=== PATIENT | male | born 1970 | race Caucasian/White ===

== ENCOUNTER 2019-05-06 01:05 | Emergency (ER) | payer OTHER, SELFPAY ==
--- NOTE | 2019-05-06 01:06 | ED.BACK ---
HPI - Back Pain/Injury General Chief Complaint: Back Pain/Injury Stated Complaint: back issues Time Seen by Provider: 05/06/19 01:06 Source: patient Mode of arrival: Ambulatory Limitations: no limitations History of Present Illness HPI Narrative: 49-year-old male nonsmoker with history of prior back trouble with surgery presents with a chief complaint of a few weeks of gradually worsening left lower back pain with radiation down his left leg, but things have significantly worsened over the past few days. He now has very severe pain radiating down his left leg with any motion and has difficulty sitting. He denies any trauma. He has had no fever chills and denies the use of IV drugs. He takes no blood thinners. He denies bowel or bladder trouble, lower extremity weakness, or numbness in his groin. Denies foot drop. Is able to find a position of comfort while standing and leaning over with his left leg slightly extended. He was seen and treated locally with a micro diskectomy about 2 years ago. He has been in touch with Dr. Gtz's office regarding this occurence Complaint: back pain Onset (ago): day(s) Duration: constant Similar Symptoms Previously: Yes Location: lumbar spine and left lower back Severity: severe Quality: sharp and stabbing Relieving factors: immobilization Exacerbating factors: sitting upright and walking Associated symptoms: denies other symptoms Related Data Home Medications Medication Instructions Recorded Confirmed [UNK NASAL STEROID FO] #0 11/02/11 cetirizine 10 mg PO QDAY #0 11/02/11 Previous Rx's Medication Instructions Recorded hydrocodone-acetaminophen 1 tab PO Q4-6H PRN #10 tab 05/06/19 ketorolac 10 mg PO Q6H PRN #14 tab 05/06/19 lidocaine [Lidoderm] 1 patch TOP DAILY #15 each 05/06/19 prednisone See Rx Instructions .ROUTE 05/06/19 .COMPLEX #30 tab Review of Systems Constitutional Constitutional: Denies chills, Denies fatigue, Denies fever(s), Denies frequent falls, Denies lethargy and Denies weakness Eyes Eyes: Denies change in vision, Denies eye discharge, Denies irritation and Denies loss of vision ENT Ears, Nose, Mouth, and Throat: Denies change in voice, Denies dizziness, Denies neck pain, Denies sore throat and Denies throat swelling Cardiovascular Cardiovascular: Denies chest pain, Denies irregular heart rhythm, Denies lightheadedness, Denies palpitations, Denies dyspnea, Denies dyspnea on exertion and Denies orthopnea Respiratory Respiratory: Denies cough, Denies dyspnea, Denies dyspnea on exertion and Denies wheezing Gastrointestinal Gastrointestinal: Denies abdominal pain, Denies change in bowel habits, Denies diarrhea, Denies nausea and Denies vomiting Genitourinary Genitourinary: Denies hematuria, Denies flank pain, Denies urinary incontinence and Denies urinary urgency Musculoskeletal Musculoskeletal: Reports back pain, Reports limited range of motion, Denies muscle weakness, Denies neck pain, Denies numbness and Denies tingling Integumentary/Breasts Skin/Breast: Denies pruritus, Denies erythema, Denies rash and Denies wounds Neurologic Neurologic: Denies behavioral changes, Denies confusion, Denies dizziness, Denies frequent falls, Denies loss of vision, Denies numbness, Denies tingling and Denies weakness Psychiatric Psychiatric: Denies anxiety, Denies behavioral changes, Denies confusion, Denies depression, Denies homicidal ideation and Denies suicidal ideation Endocrine Endocrine: Denies fatigue, Denies flushing and Denies palpitations Hematologic/Lymphatic Hematologic/Lymphatic: Denies easy bruising Allergic/Immunologic Allergic/Immunologic: Denies urticaria, Denies throat swelling and Denies wheezing Patient History Social History Smoking Status: Never smoker Social History Smoking Status: Never smoker Exam Narrative Exam Narrative: GEN: AOx3 and in mild distress EYES: Pupils are equal, round, and reactive to light and accommodation. Extraoccular muscles are intact bilaterally. There is no subconjunctival hemorrhage or exudate. CHEST: Lungs are clear to auscultation bilaterally and free of wheezes, rales, or rhonchi. Heart rate is regular rhythm, there are no murmurs, clicks, rubs, or gallops. There is no chest wall tenderness. ABD: Abdomen is soft and nontender. There is no guarding or rebound. Bowel sounds are normal in all 4 quadrants. There is no mass or organomegaly. EXT: Full painless ROM of all extremities with no loss of sensation or strength. SKIN: Warm, pink, and dry. No erythema or rash BACK: dyeing machine back tender but free of any obvious external abnormalities. Patient exam notes decreased range of motion and muscle spasm, but no CVA tenderness, or vertebral point tenderness. There are no symptoms of cauda equina such as saddle anesthesia, and decreased reflexes, decreased sensation or strength. Initial Vital Signs Initial Vital Signs: Vital Signs Temperature 97.6 F 05/06/19 01:10 Pulse Rate 78 05/06/19 01:10 Respiratory Rate 18 05/06/19 01:10 Blood Pressure 169/114 H 05/06/19 01:10 Pulse Oximetry 97 05/06/19 01:10 Course Orders Ordered: Discontinued Medications Hydrocodone Bitart/Acetaminophen (Vicodin Prepack) 1 bottle MISC SEEINSTR ONE Stop: 05/06/19 01:22 Last Admin: 05/06/19 01:26 Dose: 1 bottle Documented by: AGGIE Ketorolac Tromethamine (Toradol) 60 mg IM NOW ONE Stop: 05/06/19 01:20 Last Admin: 05/06/19 01:26 Dose: 60 mg Documented by: AGGIE Prednisone (Deltasone) 40 mg PO NOW ONE Stop: 05/06/19 01:20 Last Admin: 05/06/19 01:25 Dose: 40 mg Documented by: AGGIE Vital Signs Vital signs: Vital Signs - 8 hr 05/06/19 01:10 Temperature 97.6 F Pulse Rate 78 Respiratory Rate 18 Blood Pressure 169/114 H Pulse Oximetry 97 MDM - Back Pain/Injury MDM Narrative Medical decision making narrative: Multiple etiologies of back pain considered including; Epidural abscess, cauda equina, mass occupying lesion, and other considered Discharge Plan Departure Patient Disposition: Home Clinical Impression: Lumbar pain with radiation down left leg Instructions: DI for Low Back Pain Activity Restrictions/Additional Instructions: *You have been diagnosed with [acute lumbar pain with radiculopathy] *What to do: *Take medications as directed *Follow up with your primary care provider in 2-3 days, call for an appointment. Let them know you were seen in the Emergency Department and that we ask that you be seen in follow up *Return to ER if you should have any new, worsening or concerning symptoms, such as [numbness in your groin, loss of control of your bowel or bladder, weakness in your leg, or other bothersome symptoms] You have been prescribed narcotic medications. While on these medications you cannot drive or operate heavy machinery. Additionally you cannot sign legal documents or perform any duties such as this. 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 Please understand that we cannot provide further refills of narcotics or controlled substances through the ED and your pain management will need to be through your Primary Care Provider Prescriptions: New hydrocodone-acetaminophen 5-325 mg tablet 1 tab PO Q4-6H PRN (Reason: pain) Qty: 10 RF: 0 ketorolac 10 mg tablet 10 mg PO Q6H PRN (Reason: pain) Qty: 14 RF: 0 lidocaine [Lidoderm] 5 % adhesive patch,medicated 1 patch TOP DAILY Qty: 15 RF: 0 prednisone 10 mg tablet See Rx Instructions .ROUTE .COMPLEX Qty: 30 RF: 0 No Action cetirizine 10 MG tablet 10 mg PO QDAY Qty: 0 RF: 0 [UNK NASAL STEROID FO] Qty: 0 RF: 0 Referrals: Armen Gtz MD [Primary Care Provider] -
[2019-05-06 01:10] VITALS: BP 169/114; PULSE 78; RESP 18; TEMP 36.4; O2SAT 97
[2019-05-06] MEDS: predniSONE 20 MG TABLET 40 MG PO (01:25)
[2019-05-06] MEDS: HYDROCODONE/ACET 5/325 PREPACK 1 BOTTLE MISC (01:26)
[2019-05-06] MEDS: KETOROLAC 60 MG/2 ML VIAL IM (01:26)
[2019-05-06 01:49] VITALS: BP 149/86; PULSE 65; RESP 15; O2SAT 98
== END 2019-05-06 01:50 | disposition home or self-care (01) ==
PROVIDERS: Emergency Provider Emergency Medicine; PCP Orthopaedic Surgery
DX: M54.5 Low back pain (principal); M79.605 Pain in left leg
CPT/HCPCS: 96372; 99282; 99283; J1885

== ENCOUNTER → 2022-05-27 16:58 | Outpatient (CLI) | payer OTHER, SELFPAY ==
[2022-05-27 18:09] LABS: Add Manual Diff / Slide Review NO; Basophils Absolute Auto 0 /uL (0-100); Basophils Percent Auto 0.4 % (0-2); Eosinophils Absolute Auto 100 /uL (0-450); Eosinophils Percent Auto 1.2 % (2-4); Hematocrit 40.8 % (41-53); Hemoglobin 14.2 g/dL (13.5-17.5); Lymphocytes Absolute Auto 1600 /uL (1100-4500); Lymphocytes Percent Auto 23.8 % (25-40); Mean Corpuscular HGB Conc 34.7 % (30-36); Mean Corpuscular Hemoglobin 30.8 PG (26-34); Mean Corpuscular Volume 88.7 fL (80-100); Monocytes Absolute Auto 400 /uL (0-900); Monocytes Percent Auto 6.6 % (3-14); Neutrophils Absolute Auto 4600 /uL (1500-7000); Platelet Count 192 X10^3/uL (150-400); Red Cell Distribution Width 12.4 % (11.6-14.8); White Blood Cell Count 6.7 X10^3/uL (4.5-11.0)
[2022-05-27 18:25] LABS: Iron 77 ug/dL (49-181)
[2022-05-27 18:28] LABS: Hemoglobin A1C% w Est Avg Glu 5.8 % (4.0-6.0)
[2022-05-27 18:29] LABS: Alanine Aminotransferase 49 IU/L (<50); Albumin 4.9 g/dL (3.5-5.0); Albumin Globulin Ratio 1.6 (1.0-2.8); Alkaline Phosphatase 54 U/L (38-126); Aspartate Aminotransferase 43 IU/L (17-59); BUN Creatinine Ratio 18.3 (6-22); Bilirubin Total 0.4 mg/dL (0.2-1.3); Blood Urea Nitrogen 24 mg/dL (9-20); C-Reactive Protein Quant < 0.5 mg/dL (<1.0); Calcium 9.4 mg/dL (8.4-10.2); Carbon Dioxide 27 mmol/L (22-32); Chloride 99 mmol/L (98-107); Cholesterol 262 mg/dL (140-199); Estimated Glomerular Filt Rate > 60 mL/min (>60); Gamma Glutamyl Transpeptidase 31 U/L (15-73); Globulin 3.1 g/dL (1.7-4.1); Glucose 90 mg/dL (70-100); HDL Cholesterol 74 mg/dL (40-60); HEMOLYSIS < 15 (0-50); LDL Cholesterol Calculated 158 mg/dL (<100); Sodium 137 mmol/L (137-145); Triglycerides 148 mg/dL (35-150)
[2022-05-27 18:36] LABS: Percent Iron Saturation 22 % (20-50); Total Iron Binding Capacity 353 ug/dL (261-462)
[2022-05-27 18:58] LABS: Estradiol, Total 26.6 pg/mL
[2022-05-27 19:00] LABS: Ferritin 89 ng/mL (18-464)
[2022-05-30 10:32] LABS: Cholesterol, Total 278 mg/dL (100-199); HDL-Cholesterol 74 mg/dL (>39); LDL Particle 1613 nmol/L (<1000); LDL Size 21.4 nm (>20.5); LDL-Cholsterol 177 mg/dL (0-99); LP-IR Score 40 (<=45); Small LDL- Particle 359 nmol/L (<=527); Triglycerides 150 mg/dL (0-149)
[2022-06-03 09:36] LABS: Percent Free Testosterone 2.56 % (1.50-4.20); Testosterone Total 457.2 ng/dL (264.0-916.0)
== END ==
PROVIDERS: PCP Orthopaedic Surgery; Referring Provider Nurse Practitioner Family; Visit Provider Nurse Practitioner Family
DX: Z00.00 Encounter for general adult medical examination without abnormal findings (principal); I10 Essential (primary) hypertension; R73.9 Hyperglycemia, unspecified; E78.00 Pure hypercholesterolemia, unspecified; Z82.49 Family history of ischemic heart disease and other diseases of the circulatory system; R53.83 Other fatigue; E29.1 Testicular hypofunction; Z51.81 Encounter for therapeutic drug level monitoring
CPT/HCPCS: 36415; 80053; 80061; 82670; 82728; 82977; 83036; 83540; 83550; 83704; 84402; 84403; 85025; 86140